=== PATIENT | male | born 1990 | race Hispanic/Latino ===

== ENCOUNTER 2022-08-25 08:11 | Day surgery (SDC) | payer OTHER, BC ==
[~2022-08-25] VITALS: Ht 170.2 cm; Wt 104.8 kg
[~2022-08-25 08:11] MED LIST: BISMATROL262 MG PO; FLOVENT DISKUS50 MCG INH; METRONIDAZOLE250 MG PO; OMEPRAZOLE20 MG PO; TETRACYCLINE H500 MG PO
--- NOTE | 2022-08-26 05:59 | OR ---
[facility] [address], [place] [address] Signed DATE OF OPERATION: 08/25/2022 SURGEON: Jacqueline Burris MD PREOPERATIVE DIAGNOSES: 1. History of H pylori gastritis. 2. Heartburn. 3. Epigastric pain. POSTOPERATIVE DIAGNOSES: 1. Mild diffuse gastroduodenitis. 2. Hiatal hernia (43-40 cm). 3. 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 PROCEDURE: EGD with CLOtest and biopsies of the bulb, antrum and GE junction. ESTIMATED BLOOD LOSS: None. INDICATIONS: Rebeca is a 32-year-old gentleman, asked to see me for upper endoscopy. We had our nursing home manager help us on the nursing home manager line at the office. He was recently treated for H pylori with tetracycline, metronidazole, and bismuth as well as omeprazole. He said overall he is feeling better. He is still having some heartburn and epigastric abdominal pain. He has also had some issues with his liver function test and his ferritin level being a little low. Apparently, he is scheduled to see our betting clerks. In the meantime, he was asked to see me as a local general surgeon for upper endoscopy. We have brochures in our office written in Indonesian plus we had the nursing home manager on our nursing home manager line. I reviewed upper endoscopy with him in detail. He understands the nature of the test. There is risk including, but not limited to gas bloating, crampy abdominal pain, bleeding, perforation requiring surgery, and missed diagnosis. He also understands the need for IV conscious sedation. He had expressed understanding and wished to proceed. PROCEDURE NOTE: Rebeca was taken into our endoscopy suite and placed in the supine position. The posterior oropharynx was anesthetized with lidocaine spray. A bite block was utilized for the case. He was given IV sedation with 5.5 mg of Versed and 100 mcg of fentanyl. The adult gastroscope was introduced and advanced under direct visualization of the Electronically Signed By: JACQUELINE BURRIS MD 08/26/22 0559 PATIENT NAME: REBECA TROTTER OPERATIVE REPORT DATE OF : 89 REPORT #: [id number] PHYSICIAN: JACQUELINE BURRIS MD PCP: CHEN BLACKMON DO REPORT IS CONFIDENTIAL AND NOT TO BE RELEASED WITHOUT AUTHORIZATION [facility] [address], [place] [address] Signed camera without difficulty. The duodenum was unremarkable. The pyloric channel and the stomach showed very mild diffuse erythematous changes. We took a biopsy of the pyloric bulb as well as the antrum for pathologic review. We took an additional biopsy out of his antrum for CLOtest. Upon retroflexion of the scope, we could see a small hiatal hernia. It measured back roughly 43-40 cm. He does have a little disruption to his Z-line. We went ahead and took a biopsy along the edge of the Z-line. There was no gastric or esophageal varices. There was no stricture at the GE junction. There was no distal esophagitis. The middle and upper esophagus were unremarkable. After this, the gas was suctioned out and the gastroscope removed. Rebeca tolerated the procedure quite well. RECOMMENDATIONS: I will see Rebeca back in my office in 7 to 14 days to review his results. Jacqueline Burris MD ALB/MODL /[id number] cc: MD Chen White DO Copies: JACQUELINE BURRIS MD ~ Electronically Signed By: JACQUELINE BURRIS MD 08/26/22 0559 PATIENT NAME: REBECA TROTTER OPERATIVE REPORT DATE OF : [birth year] REPORT #: [id number] PHYSICIAN: JACQUELINE BURRIS MD PCP: CHEN BLACKMON DO REPORT IS CONFIDENTIAL AND NOT TO BE RELEASED WITHOUT AUTHORIZATION
--- NOTE | 2022-08-26 16:24 | PATH ---
[facility] [address] [place], [place] [address] Signed SPECIMEN(S): A DUODENAL BULB BIOPSY SPECIMEN(S): B ANTRUM BIOPSY SPECIMEN(S): C GE JUNCTION SPECIMEN SOURCE: A. DUODENAL BULB BIOPSY B. ANTRUM BIOPSY C. GE JUNCTION CLINICAL HISTORY: Pre: History of H. pylori and GERD. Post: Gastritis duodenitis and small hiatal hernia FINAL PATHOLOGIC DIAGNOSIS: A. Duodenal bulb, biopsy: - Benign duodenal mucosa with focal slight villous attenuation, negative for significantly increased epithelial lymphocytes. - Palma's gland hyperplasia. B. Antrum, biopsy: - Diffuse superficial chronic gastritis. - Helicobacter pylori immunostains negative for organisms. C. GE junction: - Esophageal and glandular mucosa with reactive features and slight chronic inflammation. - Negative for specialized intestinal metaplasia or dysplasia. JVR:llc:C2NR MICROSCOPIC EXAMINATION: Histologic sections of all submitted blocks are examined by light microscopy. These findings, together with the gross examination, support the pathologic diagnosis. An immunostain for Helicobacter pylori is performed with appropriate controls in block B1 to evaluate for the presence of microorganisms. The stain is negative for organisms. Cytokeratin AE1/AE3 immunostain is performed with appropriate controls in block B1 and is negative for occult carcinoma. JVR:llc GROSS DESCRIPTION: A. The specimen, labeled and designated "Rosamaria Hogue, duodenal bulb biopsy," is received in formalin and consists of one omalley soft tissue fragment PATIENT NAME: ROSAMARIA HOGUEREBECA YANG J PATHOLOGY DATE OF : [birth year] REPORT #: [id number] PHYSICIAN: RHIANNON PRESLEY PCP: CHEN BLACKMON DO REPORT IS CONFIDENTIAL AND NOT TO BE RELEASED WITHOUT AUTHORIZATION [facility] [address] [facility] [place] [place] [address] Signed measuring 0.4 cm. Entirely submitted in (A1). B. The specimen, labeled and designated "Rosamaria Hogue, antrum biopsy," is received in formalin and consists of one omalley soft tissue fragment measuring 0.8 cm. Entirely submitted in (B1). C. The specimen, labeled and designated "Rosamaria Hogue, GE junction biopsy," is received in formalin and consists of two omalley soft tissue fragments, ranging from 0.2 to 0.3 cm. Entirely submitted in (C1). VB (under the direct supervision of a pathologist) The Gross Description was prepared using a voice recognition system. The report was reviewed for accuracy; however, sound-alike word errors, addition and/or deletions may occur. If there are any questions about this report, please contact Client Services. ADDITIONAL NOTES: Immunohistochemical and/or in situ hybridization studies were performed on this case with the appropriate positive controls that react as expected. This test was developed, and its performance characteristics determined by [facility]. It has not been cleared or approved by the U.S. Food and Drug Administration. The FDA has determined that such clearance or approval is not necessary. This test is used for clinical purposes. It should not be regarded as investigational or for research. [facility] is certified under the Clinical Laboratory Improvement Amendments of 1988 (CLIA) as qualified to perform high complexity clinical laboratory testing. This assay has not been validated for specimens that have been decalcified. PERFORMING LABORATORY: The technical component was performed by [facility], [address] [place] [id number] (CLIA# [id number]). Professional interpretation was performed by [facility], [address] [place], [place] [address]., [place] [address] (CLIA#: [id number]). Diagnostician: Cristopher Estrada MD Pathologist Electronically Signed 08/26/2022 PATIENT NAME: ROSAMARIA DUMONTREBECA GROSS PATHOLOGY DATE OF : [birth year] REPORT #: [id number] PHYSICIAN: RHIANNON PRESLEY PCP: CHEN BLACKMON DO REPORT IS CONFIDENTIAL AND NOT TO BE RELEASED WITHOUT AUTHORIZATION
== END 2022-08-25 11:05 | disposition home or self-care (01) ==
LOC: OPS 08:11 → DS 08:14 → OPS 09:45
PROVIDERS: ATTEND Colon & Rectal Surgery
PROC: 0DB68ZX Excision of Stomach, Via Natural or Artificial Opening Endoscopic, Diagnostic (ICD-10-PCS; 2022-08-25)
PROC: 0DB48ZX Excision of Esophagogastric Junction, Via Natural or Artificial Opening Endoscopic, Diagnostic (ICD-10-PCS; 2022-08-25)
PROC: 0DB98ZX Excision of Duodenum, Via Natural or Artificial Opening Endoscopic, Diagnostic (ICD-10-PCS; principal; 2022-08-25 09:45)
DX: K29.50 Unspecified chronic gastritis without bleeding (principal); K44.9 Diaphragmatic hernia without obstruction or gangrene
CPT/HCPCS: 36415; 87077; G0500; J2250; J3010; J7121